=== PATIENT | male | born 1955 | race Caucasian/White ===

== ENCOUNTER 2025-01-16 09:14 | Outpatient (CLI) | payer MEDICARE, SELFPAY ==
[2025-01-16 11:19] LABS: Hematocrit 42.2 % (42.0-52.0); Hemoglobin 14.2 g/dL (14.0-18.0); Immature Granulocyte Percent A 0.2 % (0-0.5); Lymphocytes Absolute Auto 1.57 K/mm3 (0.9-3.2); Mean Corpuscular HGB Conc 33.6 g/dl (32-36); Mean Corpuscular Hemoglobin 31.6 pg (26-34); Mean Corpuscular Volume 94.0 fl (80-100); Nucleated Red Blood Cells Absolute Auto 0.000 K/mm3 (0.0-0.012); Nucleated Red Blood Cells Perc 0.0 % (0.0-0.2); Platelet Count Result 208 k/mm3 (150-375); Red Blood Count 4.49 M/mm3 (4.6-6.20); White Blood Count 6.2 K/mm3 (4.5-10.0)
[2025-01-16 13:19] LABS: Alanine Aminotransferase 23 U/L (6-50); Albumin Level 4.6 g/dL (3.5-5.1); Alkaline Phosphatase 63 U/L (38-126); Anion Gap 7 mmol/L (4-12); Aspartate Amino Transferase 38 U/L (17-59); Bilirubin,Total 0.8 mg/dL (0.2-1.3); Blood Urea Nitrogen 16 mg/dL (9-20); Calcium 9.4 mg/dL (8.4-10.2); Carbon Dioxide 27 mmol/L (22-30); Chloride 103 mmol/L (98-107); Estimated Glomerular Filt Rate > 60; Glucose 99 mg/dL (65-110); Potassium 4.5 mmol/L (3.4-5.0); Sodium 137 mmol/L (137-145); Total Protein 8.1 g/dL (6.3-8.2)
[2025-01-16 13:57] LABS: Prostate Specific Antigen 1.9 ng/mL (< OR = 4.0)
== END 2025-01-16 09:15 | disposition home or self-care (01) ==
PROVIDERS: PCP Internal Medicine; Visit Provider Internal Medicine
DX: R55 Syncope and collapse (principal); Z82.49 Family history of ischemic heart disease and other diseases of the circulatory system; Z12.5 Encounter for screening for malignant neoplasm of prostate
CPT/HCPCS: 36415; 80053; 80061; 82172; 83695; 84153; 85025; G0103